=== PATIENT | male | born 1985 | race Caucasian/White ===

== ENCOUNTER 2018-05-30 11:37 | Emergency (ER) | payer BC ==
[~2018-05-30] VITALS: Ht 170.2 cm; Wt 98.9 kg
[2018-05-30 11:44] VITALS: Ht 170.2 cm; Wt 98.9 kg
[2018-05-30 12:31] VITALS: BP 142/81
== END 2018-05-30 12:31 | disposition home or self-care (01) ==
LOC: ED 11:37
DX: F41.9 Anxiety disorder, unspecified (principal); R07.89 Other chest pain
CPT/HCPCS: Q0092